=== PATIENT | female | born 1950 | race Caucasian/White ===

== ENCOUNTER 2019-08-26 15:04 | Emergency (ER) | payer MEDICARE ==
[2019-08-26 15:44] VITALS: BP 144/81
--- NOTE | 2019-08-26 15:52 | UC ---
Respiratory Complaint HPI - HPI Summary HPI Summary: 69-year-old woman comes in with chief complaint of upper respiratory tract infection symptoms for 18 days. She's had rhinorrhea cough chest congestion sore throat wheezing. To been using [id number] medicines and her albuterol inhaler which helped some however overall she's getting worse. No edema. - History of Current Complaint Chief Complaint: UCRespiratory Stated Complaint: SORE THROAT Time Seen by Provider: 08/26/19 15:42 Pain Intensity: 7 - Allergies/Home Medications Allergies/Adverse Reactions: Allergies Allergy/AdvReac Type Severity Reaction Status Date / Time MS Statins [Statins] AdvReac Intermediate See Comment Verified 08/26/19 15:40 environmental Allergy Rash Uncoded 08/26/19 15:40 Home Medications: Home Medications Cholecalciferol (Vitamin D3) [Vitamin D3] 1 tab PO DAILY 08/26/19 [History Confirmed 08/26/19] Fluoxetine HCl [Prozac] 1 tab PO DAILY 08/26/19 [History Confirmed 08/26/19] Ibuprofen/Diphenhydramine Cit [Advil Pm Caplet] 1 tab PO QPM 08/26/19 [History Confirmed 08/26/19] Methylcobalamine (NF) [B-12] 1 tab PO DAILY 08/26/19 [History Confirmed 08/26/19 ] Multivitamin [Honey Bears] 1 tab PO DAILY 08/26/19 [History Confirmed 08/26/19] Multivitamin [Once Daily] 1 tab PO DAILY 08/26/19 [History Confirmed 08/26/19] Pantoprazole Sodium 1 tab PO DAILY 08/26/19 [History Confirmed 08/26/19] Phenylephrine/Acetaminophn/Cpm [Sinus Congestion-Pain Caplet] 1 tab PO ONCE PRN 08/26/19 [History Confirmed 08/26/19] PMH/Surg Hx/FS Hx/Imm Hx Previously Healthy: Yes Respiratory History: Asthma GI/ History: Gastroesophageal Reflux - Surgical History Surgical History: Yes Surgery Procedure, Year, and Place: 1996 Total Hysterectomy, tubal. Rt WRIST - [facility]. left wrist - Family History Known Family History: Positive: None, Cardiac Disease - [place] father age 57, Hypertension - [place] father age 57, Diabetes, Other - colon CA - Social History Alcohol Use: Occasionally Substance Use Type: None Smoking Status (MU): Never Smoked Tobacco - Immunization History Most Recent Influenza Vaccination: 05/2017 Most Recent Tetanus Shot: UTD Most Recent Pneumonia Vaccination: 2014 Review of Systems All Other Systems Reviewed And Are Negative: Yes Constitutional: Positive: Other - SEE HPI Skin: Positive: Negative Eyes: Positive: Negative ENT: Positive: Sore Throat, Nasal Discharge, Sinus Congestion, Sinus Pain/ Tenderness Respiratory: Positive: Shortness Of Breath, Cough, Other - SEE HPI Cardiovascular: Positive: Negative Gastrointestinal: Positive: Negative Motor: Positive: Negative Neurovascular: Positive: Negative Musculoskeletal: Positive: Negative Neurological: Positive: Negative Psychological: Positive: Negative Is Patient Immunocompromised?: No Physical Exam Triage Information Reviewed: Yes Appearance: No Pain Distress, Well-Nourished, Ill-Appearing - MILD Vital Signs: Initial Vital Signs Temp 99.0 F 08/26/19 15:28 Pulse 96 08/26/19 15:28 Resp 18 08/26/19 15:28 BP 144/81 08/26/19 15:28 Pulse Ox 97 08/26/19 15:28 Vital Signs Reviewed: Yes Eye Exam: Normal Eyes: Positive: Conjunctiva Clear ENT: Positive: Pharyngeal erythema, Nasal congestion, Nasal drainage, TMs normal Neck: Positive: Supple Respiratory: Positive: No respiratory distress, Wheezing Cardiovascular: Positive: RRR Musculoskeletal: Positive: Strength Intact, ROM Intact, No Edema Neurological: Positive: Alert, Muscle Tone Normal Psychological: Positive: Age Appropriate Behavior Skin Exam: Normal Respiratory Course/Dx - Course Course Of Treatment: We will treat for bronchitis with bronchospasm with symptoms for greater than 10 days with azithromycin and a Medrol Dosepak. Follow-up with the primary care doctor go to the emergency department if worse or not improving. - Differential Dx/Diagnosis Provider Diagnosis: Bronchitis with bronchospasm, Asthma Discharge ED - Sign-Out/Discharge Documenting (check all that apply): Patient Departure All imaging exams completed and their final reports reviewed: No Studies - Discharge Plan Condition: Stable Disposition: HOME Prescriptions: Azithromyxin RIGO (NF) [Z-Rigo (Zithromax) 250 mg tabs #6] 2 tab PO .TODAY, THEN 1 DAILY #6 tab methylPREDNISolone [Medrol Dosepak 4 MG*] 0 mg PO .SEE RIGO INSTRUCTION #1 rigo Patient Education Materials: Asthma (ED), Acute Bronchitis (ED), Bronchospasm ( ED) Referrals: Clarence Layne MD [Primary Care Provider] - Additional Instructions: FOLLOW UP WITH YOUR DOCTOR IF NOT COMPLETELY IMPROVED. GET REEVALUATED SOONER IF NOT IMPROVED OR GO TO THE EMERGENCY DEPARTMENT IF WORSE; CHEST PAIN, SHORTNESS OF BREATH, YOU FEEL ILL OR ANY QUESTIONS OR CONCERNS. - Billing Disposition and Condition Condition: STABLE Disposition: Home
== END 2019-08-26 16:02 | disposition home or self-care (01) ==
LOC: UCEAST 15:04
DX: J45.909 Unspecified asthma, uncomplicated (principal); K21.9 Gastro-esophageal reflux disease without esophagitis; R09.81 Nasal congestion; Z91.09 Other allergy status, other than to drugs and biological substances; Z79.899 Other long term (current) drug therapy
CPT/HCPCS: 99211; G0463